=== PATIENT | male | born 1995 | race Caucasian/White ===

== ENCOUNTER 2020-09-20 20:00 | Emergency (ER) | payer OTHER ==
[~2020-09-20 20:00] MED LIST: CIPRO HC OTIC S10 ML EARBOTH; TORADOL 10 MG T10 MG PO
[2020-09-20 22:40] LABS: HEMOGLOBIN 17.5 gm/dl (14.0-17.5); RED BLOOD COUNT 5.51 M/UL (4.20-5.50); WHITE BLOOD COUNT 12.8 K/UL (4.5-11.0)
[2020-09-20 23:02] LABS: BUN/CREATININE RATIO 17 (0-10)
== END 2020-09-20 23:28 | disposition home or self-care (01) ==
LOC: ER1 20:00
PROVIDERS: Family Medicine
DX: R07.89 Other chest pain (principal); I10 Essential (primary) hypertension; Z87.891 Personal history of nicotine dependence
CPT/HCPCS: 71045; 80053; 82550; 82553; 83874; 84484; 85025; 93005; 99285